=== PATIENT | male | born 1960 | race Hispanic/Latino ===

== ENCOUNTER 2020-07-01 09:33 | Emergency (ER) | payer BC, OTHER ==
--- NOTE | 2020-07-01 09:45 | Event Note ---
ED Screening Note Date of service: 07/01/20 Time: 09:44 ED Screening Note: Patient complains of left-sided chest pain x this morning History of hypertension diabetes Denies heart history This initial assessment/diagnostic orders/clinical plan/treatment(s) is/are subject to change based on patients health status, clinical progression and re- assessment by fellow clinical providers in the ED. Further treatment and workup at subsequent clinical providers discretion. Patient/guardian urged not to elope from the ED as their condition may be serious if not clinically assessed and managed. Initial orders include: Labs EKG Chest x-ray
--- NOTE | 2020-07-01 10:17 | XRay Report ---
CHEST 2 VIEWS INDICATION: left sided chest pain. COMPARISON: 02/03/2018. FINDINGS: Support devices: None. Heart: Stable mild cardiomegaly. Lungs/Pleura: No acute air space or interstitial disease. No significant pleural effusion. Eventrat ion right hemidiaphragm. IMPRESSION: Stable chest. Signer Name: Bartolo Mejia MD Signed: 07/01/2020 10:13 AM Workstation Name: [id number]
[2020-07-01 11:04] LABS: Basophils # (Auto) 0.1 K/mm3 (0.0-0.1); Basophils % (Auto) 0.9 % (0.0-1.8); Eosinophils # (Auto) 0.3 K/mm3 (0.0-0.4); Eosinophils % (Auto) 5.2 % (0.0-4.3); Hematocrit 38.5 % (35.5-45.6); Hemoglobin 13.7 gm/dl (11.8-15.2); Lymphocytes # (Auto) 1.1 K/mm3 (1.2-5.4); Lymphocytes % (Auto) 17.7 % (13.4-35.0); Mean Corpuscular HGB Conc 36 % (32-34); Mean Corpuscular Volume 88 fl (84-94); Monocytes # (Auto) 0.4 K/mm3 (0.0-0.8); Monocytes % (Auto) 6.8 % (0.0-7.3); Platelet Count 236 K/mm3 (140-440); Red Blood Count 4.35 M/mm3 (3.65-5.03); Red Cell Distribution Width 14.4 % (13.2-15.2)
[2020-07-01 13:26] LABS: Alanine Aminotransferase 21 units/L (7-56); Albumin 4.1 g/dL (3.9-5); Blood Urea Nitrogen 13 mg/dL (9-20); Calcium 9.2 mg/dL (8.4-10.2); Hemolysis Index 13
[2020-07-01 13:30] LABS: BUN/Creatinine Ratio 19
[2020-07-01 15:09] VITALS: BP 152/73
--- NOTE | 2020-07-04 11:06 | Electrocardiograph Report ---
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
== END 2020-07-01 17:00 ==
LOC: ED 09:33
DX: M25.512 Pain in left shoulder (principal); Z53.21 Procedure and treatment not carried out due to patient leaving prior to being seen by health care provider
CPT/HCPCS: 36415; 71046; 80053; 84484; 85025; 93005